=== PATIENT | female | born 1985 | race Caucasian/White ===

== ENCOUNTER 2024-02-05 06:03 | Day surgery (SDC) | payer BC ==
[~2024-02-05] VITALS: Ht 160 cm; Wt 72.6 kg
[~2024-02-05 06:03] MED LIST: ACET-907 PO; IBUP80TA PO
[2024-02-05] MEDS ORDERED: LR 1,000 ML IV SCH (06:20)
[2024-02-05] MEDS ORDERED: LIDOCAINE 2% 100MG/5ML SDV (FOR ANES.) As Ordered ONE (06:45)
[2024-02-05] MEDS ORDERED: propofoL 200 MG/20 ML VIAL As Ordered ONE (06:45)
[2024-02-05] MEDS ORDERED: MIDAZOLAM INJ 2MG/2ML VIAL As Ordered ONE (06:46)
[2024-02-05] MEDS ORDERED: KETAMINE HCL 200MG/20ML VIAL As Ordered ONE (06:46)
[2024-02-05] MEDS ORDERED: ACETAMINOPHEN 1000MG 100ML IV BAG As Ordered ONE (06:51)
[2024-02-05] MEDS: VANCOMYCIN HCL 1,000 MG, VIAL MATE ADAPTER 1 EACH in D5W 250 ML IV ONE (07:05)
[2024-02-05] MEDS: diphenhydrAMINE 50MG/ML VIAL IV PRN (07:30)
[2024-02-05] MEDS: LIDOCAINE 2% MDV 20ML VIAL As Ordered ONE (07:51)
[2024-02-05] MEDS: GENTAMICIN SULF 80MG/2ML VIAL As Ordered ONE (08:14)
[2024-02-05] MEDS ORDERED: ONDANSETRON 4MG 2ML VIAL As Ordered ONE (08:58)
[2024-02-05] MEDS ORDERED: KETOROLAC 60MG 2ML VIAL As Ordered ONE (08:58)
[2024-02-05 10:29] VITALS: BP 112/70; TEMP 97.8; O2SAT 98
== END 2024-02-05 11:00 | disposition home or self-care (01) ==
LOC: M SDC 06:03
PROVIDERS: ATTEND Podiatrist
DX: M20.11 Hallux valgus (acquired), right foot (principal); M21.621 Bunionette of right foot; Z87.891 Personal history of nicotine dependence; Z91.048 Other nonmedicinal substance allergy status; Z88.1 Allergy status to other antibiotic agents; Z88.5 Allergy status to narcotic agent; Z88.3 Allergy status to other anti-infective agents
CPT/HCPCS: 28110; 28296; 73630; 76000; 81025; 88300; C1713; J0131; J0665; J1100; J1200; J1580; J1885; J2250; J2405; J3370

== ENCOUNTER → 2025-01-03 | Outpatient (REF) | payer BC ==
[2025-01-03 14:14] LABS: APPEARANCE, URINE HAZY (CLEAR); BACTERIA, URINE AUTO 1+ (NEGATIVE); BILIRUBIN, URINE AUTO NEGATIVE (NEGATIVE); BLOOD, URINE BLOOD NEGATIVE (NEGATIVE); GLUCOSE, URINE (UA) AUTO NEGATIVE (NEGATIVE); KETONE, URINE AUTO NEGATIVE (NEGATIVE); LEUKOCYTE ESTERASE, URINE AUTO NEGATIVE (NEGATIVE); NITRITE, URINE AUTO NEGATIVE (NEGATIVE); PROTEIN, URINE AUTO NEGATIVE (NEGATIVE); RBC, URINE AUTO 0 /HPF (0-3); SPECIFIC GRAVITY URINE AUTO 1.003 (1.002-1.035); SQUAMOUS EPITHELIAL CELL UR AU 5 /HPF (0-6); UROBILINOGEN, URINE AUTO 0.2 mg/dL (0.0-2.0); WBC, URINE AUTO 0 /HPF (0-3)
== END ==
LOC: M SMT 12:54
PROVIDERS: ATTEND Urology
DX: N28.1 Cyst of kidney, acquired (principal)

== ENCOUNTER → 2025-01-18 | Outpatient (CLI) | payer BC ==
[~2025-01-18] MED LIST changes: +ISOVUE-370 76% 100 ML VIAL As Ordered ONE
== END ==
LOC: M RAD 16:59
PROVIDERS: ATTEND Urology
DX: N28.1 Cyst of kidney, acquired (principal)